=== PATIENT | male | born 1960 | race African-American/Black ===

== ENCOUNTER 2018-10-22 13:10 | Emergency (ER) | payer SELFPAY ==
[~2018-10-22] VITALS: Ht 185.4 cm; Wt 71.2 kg
[2018-10-22 14:19] LABS: Urine Bacteria NONE SEEN /hpf (None Seen); Urine Blood Negative /uL (Negative); Urine Specific Gravity 1.007 (1.001-1.035); Urine WBC <1 /hpf (0 - 3)
[2018-10-22 14:22] LABS: Basophils # (auto) 0.1 uL; Eosinophils # (auto) 0.2 uL; Eosinophils % (auto) 3.1 % (0.0-7.0); Hematocrit 48.3 % (41.0-53.0); Hemoglobin 16.9 g/dL (13.5-17.5); Lymphocytes # (auto) 2.3 uL; Lymphocytes % (auto) 36.9 % (10.0-50.0); Mean Corpuscular Hemoglobin 33.6 pg (28.0-32.0); Mean Corpuscular Volume 96.2 fL (80.0-100.0); Monocytes # (auto) 0.7 uL; Monocytes % (auto) 10.9 % (0.0-12.0); Neutrophils % (auto) 48.1 % (37.0-80.0); Nucleated Red Blood Cells % 0.4 %; Platelet Count (auto) 138 10^3/uL (140-450); Red Blood Cells 5.02 10^6/uL (4.5-5.90); Red Cell Distribution Width 13.4 % (11.8-14.3); White Blood Cell 6.2 10^3/uL (4.4-10.8)
[2018-10-22 14:27] LABS: Alanine Aminotransferase 46 U/L (16-61); Albumin 3.6 g/dL (3.4-5.0); Anion Gap 4 (5-15); Aspartate Aminotransferase 31 U/L (15-37); Blood Urea Nitrogen 8 mg/dL (7-18); Calcium 8.6 mg/dL (8.5-10.1); Carbon Dioxide 30 mmol/L (21-32); Chloride 107 mmol/L (98-107); Glucose 89 mg/dL (74-106); Potassium 3.8 mmol/L (3.5-5.1); Sodium 141 mmol/L (136-145)
[2018-10-22 14:31] LABS: Alkaline Phosphatase 69 U/L (45-117); BUN/Creatinine Ratio 8.7; GFR African American 109 mL/min; GFR Non-African American 90 mL/min; Total Protein 7.4 g/dL (6.4-8.2)
[2018-10-22 19:38] VITALS: BP 156/93
== END 2018-10-22 19:40 | disposition home or self-care (01) ==
LOC: ER 13:16
DX: R10.84 Generalized abdominal pain (principal); F12.10 Cannabis abuse, uncomplicated; I10 Essential (primary) hypertension; Z88.8 Allergy status to other drugs, medicaments and biological substances
CPT/HCPCS: 36415; 74176; 80053; 81001; 84484; 85025